=== PATIENT | female | born 1985 | race Caucasian/White ===

== ENCOUNTER 2023-07-27 21:06 | Outpatient (REF) | payer MEDICAID, SELFPAY ==
[2023-07-31 12:11] LABS: Age Gdln ACOG Testing Note (.); HPV Aptima Negative (Negative); IGP, Aptima HPV, rfx 16/18,45 Note (.)
== END 2023-07-27 21:07 | disposition home or self-care (01) ==
LOC: LAB 21:06
PROVIDERS: Visit Provider Obstetrics & Gynecology
DX: Z01.419 Encounter for gynecological examination (general) (routine) without abnormal findings (principal)
CPT/HCPCS: 87624; G0145

== ENCOUNTER 2023-08-18 08:48 | Outpatient (OUT) | payer MEDICAID, SELFPAY ==
--- NOTE | 2023-08-18 08:52 | US_ITS ---
The [address] [address] Patient Name: ALMA Haque JULY MRN: [id number] date: 1985 Sex: F Assigned Patient Location: US Current Patient Location: US Accession/Order Number: [id number] Exam Date: 08/18/2023 09:05 Report Date: 08/18/2023 10:17 At the request of: MAURA DIAZ Procedure: US pelvis w/ transvaginal EXAMINATION: US pelvis w/ transvaginal HISTORY: pelvic pain in female R10.2 ; right pelvic pain for 4 months COMPARISON: Ultrasound pelvis 08/26/2021 TECHNIQUE: Transabdominal and/or transvaginal sonographic examination was performed as indicated by examination type. FINDINGS: UTERUS: Hysterectomy. RIGHT OVARY: Normal size and appearance. Duplex Doppler demonstrates normal waveform and flow; resistive index 0.6. Ovary size: 2.7 x 1.9 x 2.0 cm LEFT OVARY: Not seen due to overlying bowel gas. No appreciable suspicious adnexal findings. CUL-DE-SAC: Unremarkable. No significant free fluid. BLADDER: Unremarkable. OTHER: None. US/US pelvis w/ transvaginal IMPRESSION: 1. No acute or suspicious findings to account for patient's symptoms. Electronically authenticated by: JL JONES Date: 08/18/2023 10:17
--- NOTE | 2023-08-18 08:55 | US_ITS ---
Patient Name: ALMA QUEZADA MR#: [id number] : 1985 Exam Date: 08/18/2023 Ordering Doctor: DR Huy Vu . RADIOLOGY REPORT PROCEDURE: MM TOMOSYNTHESIS DIAGNOSTIC BI, 08/18/2023, 09:00 US BREAST LT COMPLETE, 08/18/2023, 11:06 COMPARISON: None. INDICATIONS: mass of upper inner quadrant of left breast N63.22 Calculator Name NCI Breast Cancer Risk Assessment Tool 5 Year Breast Cancer Risk 0.20% Lifetime Breast Cancer Risk 6.80% Personal Breast Cancer No Personal Ovarian Cancer No Treatments None Family Cancers Grandmother-maternal with melanoma cancer at age ~80. LOCATION: [facility] BREAST COMPOSITION: Extremely dense, which lowers the sensitivity of mammography. FINDINGS: DIAGNOSTIC CATEGORY 3--PROBABLY BENIGN FINDING. THE FOLLOWING FINDING(S) HAS A HIGH PROBABILITY OF A BENIGN ETIOLOGY: RIGHT BREAST: 1.2 cm lobular area within posterior upper-outer quadrant. Ultrasound evaluation demonstrates a collection of anechoic benign-appearing cysts. LEFT BREAST: Numerous rounded and oval partially circumscribed lesions scattered within left breast, predominantly within the upper-outer quadrant. Ultrasound evaluation demonstrates numerous collections of predominately anechoic cysts and scattered single cysts; no overtly suspicious findings or blood flow. Given the complex appearance of the breasts, left greater than right, MRI of the breast could be considered for greater diagnostic sensitivity in further evaluation. Otherwise, follow-up diagnostic mammography and bilateral breast ultrasound in 6 months is recommended to document stability and to help establish baseline. RECOMMENDATIONS: SHORT TERM FOLLOW-UP DIAGNOSTIC MAMMOGRAM BILATERAL BREASTS IN 6 MONTHS. FOLLOW-UP ULTRASOUND BILATERAL BREASTS IN 12 MONTHS. PLEASE NOTE: A NORMAL MAMMOGRAM DOES NOT EXCLUDE THE POSSIBILITY OF BREAST CANCER. A CLINICALLY SUSPICIOUS PALPABLE LUMP SHOULD BE BIOPSIED. Dictated by: Rustam Peralta M.D. on 08/18/2023 at 12:06 Approved by: Rustam Peralta M.D. on 08/18/2023 at 12:16
--- NOTE | 2023-08-18 10:38 | US_ITS ---
Patient Name: ALMA QUEZADA MR#: [id number] : 1985 Exam Date: 08/18/2023 Ordering Doctor: DR Huy Vu . RADIOLOGY REPORT PROCEDURE: US BREAST RT LIMITED COMPARISON: US BREAST LT COMPLETE, 08/18/2023. MM TOMOSYNTHESIS DIAGNOSTIC BI, 08/18/2023. INDICATIONS: ABNORMAL MAMMOGRAM R92.8 TECHNIQUE: Breast ultrasound was performed, with evaluation focusing only on specific areas of concern. FINDINGS: DIAGNOSTIC CATEGORY 3--PROBABLY BENIGN FINDING. THE FOLLOWING FINDING(S) HAS A HIGH PROBABILITY OF A BENIGN ETIOLOGY: RIGHT BREAST: 1.2 cm lobular area within posterior upper-outer quadrant. Ultrasound evaluation demonstrates a collection of anechoic benign-appearing cysts. LEFT BREAST: Numerous rounded and oval partially circumscribed lesions scattered within left breast, predominantly within the upper-outer quadrant. Ultrasound evaluation demonstrates numerous collections of predominately anechoic cysts and scattered single cysts; no overtly suspicious findings or blood flow. Given the complex appearance of the breasts, left greater than right, MRI of the breast could be considered for greater diagnostic sensitivity and further evaluation. Otherwise, follow-up diagnostic mammography and bilateral breast ultrasound in 6 months is recommended to document stability and to help establish baseline. RECOMMENDATIONS: SHORT TERM FOLLOW-UP DIAGNOSTIC MAMMOGRAM BILATERAL BREASTS IN 6 MONTHS. FOLLOW-UP ULTRASOUND BILATERAL BREASTS IN 12 MONTHS. PLEASE NOTE: A NORMAL ULTRASOUND EXAMINATION DOES NOT EXCLUDE THE POSSIBILITY OF BREAST CANCER. A CLINICALLY SUSPICIOUS PALPABLE LUMP SHOULD BE BIOPSIED. Dictated by: Rustam Peralta M.D. on 08/19/2023 at 12:01 Approved by: Rustam Peralta M.D. on 08/19/2023 at 12:04
== END 2023-08-18 08:49 | disposition home or self-care (01) ==
LOC: US 08:48
PROVIDERS: Visit Provider Obstetrics & Gynecology
DX: N63.22 Unspecified lump in the left breast, upper inner quadrant (principal); R10.2 Pelvic and perineal pain; Z80.8 Family history of malignant neoplasm of other organs or systems; R92.8 Other abnormal and inconclusive findings on diagnostic imaging of breast
CPT/HCPCS: 76641; 76642; 76830; 76856; 77066; G0279